=== PATIENT | male | born 1975 | race Caucasian/White ===

== ENCOUNTER 2021-03-11 10:51 | Outpatient (CLI) | payer OTHER | END 2021-03-11 10:56 | disposition home or self-care (01) | LOC: LAB 10:51 | DX: E78.2 Mixed hyperlipidemia (principal); D50.8 Other iron deficiency anemias; D46.4 Refractory anemia, unspecified; E03.8 Other specified hypothyroidism; Z12.11 Encounter for screening for malignant neoplasm of colon; N39.0 Urinary tract infection, site not specified ==

== ENCOUNTER → 2021-06-22 09:51 | Outpatient (CLI) | payer OTHER | END | disposition home or self-care (01) | LOC: LAB 09:51 | PROVIDERS: ATTEND Urology | DX: N20.0 Calculus of kidney (principal); N18.2 Chronic kidney disease, stage 2 (mild); Z12.5 Encounter for screening for malignant neoplasm of prostate ==